=== PATIENT | male | born 1985 | race Caucasian/White ===

== ENCOUNTER 2020-01-12 19:23 | Inpatient (IN) | payer MEDICAID ==
--- NOTE | 2020-01-12 19:45 | EDM.PDOC ---
ED HPI GENERAL MEDICAL PROBLEM - General Chief Complaint: Drug or Alcohol Abuse Stated Complaint: DETOXING FROM ALCOHOL AND VOMITING Time Seen by Provider: 01/12/20 19:44 - History of Present Illness INITIAL COMMENTS - FREE TEXT/NARRATIVE: 34-year-old male presents the emergency room with alcohol detox. According to the patient and his significant other the patient has had 4 seizures today these have been followed by brief episodes of decreased level of consciousness and been quite sleepy. The patient has has a history of chronic alcoholism and when he has tried to dry out in the past he has had rough times with withdrawal. Including seizures. His last drink was this morning he had half a beer normal he drinks about a 12 pack a day. When asked if he "wants to quit drinking he answers no however he really wants to slow down. He has been having significant nausea and vomiting and he has been coughing. Denies fevers or chills. Denies pain elsewhere. - Related Data Allergies Allergy/AdvReac Type Severity Reaction Status Date / Time No Known Allergies Allergy Verified 01/12/20 19:34 Past Medical History - Past Health History Medical/Surgical History: Denies Medical/Surgical History Psychiatric History: Reports: Addiction Social & Family History - Family History Family Medical History: Noncontributory - Tobacco Use Smoking Status *Q: Current Every Day Smoker Years of Tobacco use: 16 Packs/Tins Daily: 1 - Alcohol Use Days Per Week of Alcohol Use: 7 Number of Drinks Per Day: 12 Total Drinks Per Week: 84 Date of Last Drink: 01/11/20 - Recreational Drug Use Recreational Drug Use: No ED ROS GENERAL - Review of Systems Review Of Systems: See Below Constitutional: Denies: Fever, Chills HEENT: Reports: No Symptoms Respiratory: Reports: Cough. Denies: No Symptoms, Shortness of Breath, Wheezing, Pleuritic Chest Pain, Sputum Cardiovascular: Denies: Chest Pain, Dyspnea on Exertion, Palpitations Endocrine: Reports: No Symptoms GI/Abdominal: Reports: No Symptoms : Reports: No Symptoms Musculoskeletal: Reports: No Symptoms Skin: Reports: No Symptoms Neurological: Reports: Headache, Seizure, Tremors Psychiatric: Reports: Agitation, Anxiety. Denies: Mood Lability, Suicidal Ideation Hematologic/Lymphatic: Reports: No Symptoms Immunologic: Reports: No Symptoms ED EXAM, GENERAL - Physical Exam Exam: See Below Exam Limited By: No Limitations General Appearance: Alert, No Apparent Distress Eye Exam: Bilateral Eye: Normal Inspection Ears: Normal External Exam, Normal Canal, Hearing Grossly Normal, Normal TMs Nose: Normal Inspection, Normal Mucosa, No Blood Throat/Mouth: Normal Inspection, Normal Lips, Normal Gums, No Airway Compromise, Other (Dry mucosa) Head: Atraumatic, Normocephalic Neck: Normal Inspection, Supple, Non-Tender, Full Range of Motion Respiratory/Chest: No Respiratory Distress, Lungs Clear, Normal Breath Sounds, No Accessory Muscle Use, Chest Non-Tender Cardiovascular: Normal Peripheral Pulses, Regular Rate, Rhythm, No Edema, No Gallop, No JVD, No Murmur, No Rub GI/Abdominal: Normal Bowel Sounds, Soft, Tender (Use mild discomfort no localizing symptoms). No: Guarding, Rigid, Rebound Back Exam: Normal Inspection. No: CVA Tenderness (L), CVA Tenderness (R) Extremities: Normal Inspection, Normal Range of Motion, Non-Tender Psychiatric: Anxious Course - Vital Signs Last Recorded V/S: Last Vital Signs Temp 36.2 C 01/12/20 19:35 Pulse 118 H 01/12/20 19:35 Resp 16 01/12/20 19:35 BP 154/98 H 01/12/20 19:35 Pulse Ox 96 01/12/20 19:35 - Orders/Labs/Meds Orders: Active Orders 24 hr Category Date Time Status Chest 1V Frontal [CR] Stat Exams 01/12/20 19:54 Taken DRUG SCREEN, URINE [URCHEM] Stat Lab 01/12/20 19:54 Ordered UA RFX BRIANNA AND CULT IF INDIC [URIN] Stat Lab 01/12/20 19:54 Ordered LORazepam [Ativan] Med 01/12/20 20:54 Active See Protocol IVPUSH Q4H PRN Lactated Ringers [Ringers, Lactated] 1,000 ml Med 01/12/20 21:07 Active IV .BOLUS Magnesium Sulfate/Water [Magnesium Sulfate in Water Med 01/12/20 20:21 Active Premix] 2 gm Premix Bag 1 bag IV ONETIME Medication Orders Magnesium Sulfate 2 gm/ Premix 50 mls @ 25 mls/hr IV ONETIME ONE Stop: 01/12/20 22:20 Last Admin: 01/12/20 20:39 Dose: 25 mls/hr Documented by: VALERY Lactated Ringer's (Ringers, Lactated) 1,000 mls @ 999 mls/hr IV .BOLUS ONE Stop: 01/12/20 22:07 Last Admin: 01/12/20 21:12 Dose: 999 mls/hr Documented by: VALERY Lorazepam (Ativan) 0 mg IVPUSH Q4H PRN; Protocol PRN Reason: Withdrawal Symptoms Last Admin: 01/12/20 21:12 Dose: 2 mg Documented by: VALERY Labs: Laboratory Tests 01/12/20 01/12/20 01/12/20 Range/Units 19:40 19:40 19:40 WBC 7.49 (4.23-9.07) K/mm3 RBC 5.11 (4.63-6.08) M/mm3 Hgb 16.0 (13.7-17.5) gm/dl Hct 48.5 (40.1-51.0) % MCV 94.9 H (79.0-92.2) fl MCH 31.3 (25.7-32.2) pg MCHC 33.0 (32.2-35.5) g/dl RDW Std Deviation 45.4 H (35.1-43.9) fL Plt Count 128 L (163-337) K/mm3 MPV 9.7 (9.4-12.3) fl Neut % (Auto) 58.2 (34.0-67.9) % Lymph % (Auto) 19.4 L (21.8-53.1) % [place] % (Auto) 21.5 H (5.3-12.2) % Eos % (Auto) 0.1 L (0.8-7.0) Baso % (Auto) 0.7 (0.1-1.2) % Neut # (Auto) 4.36 (1.78-5.38) K/mm3 Lymph # (Auto) 1.45 (1.32-3.57) K/mm3 [place] # (Auto) 1.61 H (0.30-0.82) K/mm3 Eos # (Auto) 0.01 L (0.04-0.54) K/mm3 Baso # (Auto) 0.05 (0.01-0.08) K/mm3 Manual Slide Review Normal smear PT 10.8 (9.7-12.0) SECONDS INR 1.01 Sodium 137 (136-145) mEq/L Potassium 3.3 L (3.5-5.1) mEq/L Chloride 98 (98-107) mEq/L Carbon Dioxide 18 L (21-32) mEq/L Anion Gap 24.3 H (5-15) BUN 6 L (7-18) mg/dL Creatinine 1.5 H (0.7-1.3) mg/dL Est Cr Clr Drug Dosing 71.23 mL/min Estimated GFR (MDRD) 54 (>60) mL/min BUN/Creatinine Ratio 4.0 L (14-18) Glucose 185 H (74-106) mg/dL Calcium 9.9 (8.5-10.1) mg/dL Magnesium 1.6 L (1.8-2.4) mg/dl Total Bilirubin 0.4 (0.2-1.0) mg/dL GGT 321 H (15-85) U/L AST 79 H (15-37) U/L ALT 59 (16-63) U/L Alkaline Phosphatase 106 (46-116) U/L Total Protein 9.0 H (6.4-8.2) g/dl Albumin 4.5 (3.4-5.0) g/dl Globulin 4.5 gm/dL Albumin/Globulin Ratio 1.0 (1-2) Ethyl Alcohol 0.00 (0.00) gm% Meds: Medications Generic Name Dose Route Start Last Admin Trade Name Malcolmq PRN Reason Stop Dose Admin Magnesium Sulfate 2 gm/ Premix 50 mls @ 25 mls/hr 01/12/20 20:21 01/12/20 20:39 IV 01/12/20 22:20 25 mls/hr ONETIME ONE Administration Lactated Ringer's 1,000 mls @ 999 mls/hr 01/12/20 21:07 01/12/20 21:12 Ringers, Lactated IV 01/12/20 22:07 999 mls/hr .BOLUS ONE Administration Lorazepam 0 mg 01/12/20 20:54 01/12/20 21:12 Ativan IVPUSH 2 mg Q4H PRN Administration Withdrawal Symptoms Protocol Discontinued Medications Generic Name Dose Route Start Last Admin Trade Name Freq PRN Reason Stop Dose Admin Lactated Ringer's 1,000 mls @ 999 mls/hr 01/12/20 19:46 01/12/20 20:00 Ringers, Lactated IV 01/12/20 20:46 999 mls/hr .BOLUS ONE Administration Thiamine HCl 100 mg/ Sodium 101 mls @ 202 mls/hr 01/12/20 20:22 01/12/20 20:40 Chloride IV 01/12/20 20:23 202 mls/hr ONETIME ONE Administration Lorazepam 2 mg 01/12/20 19:46 01/12/20 20:00 Ativan IVPUSH 01/12/20 19:47 2 mg ONETIME ONE Administration Lorazepam 1 mg 01/12/20 20:45 Ativan IVPUSH Q4H PRN Withdrawal Symptoms Protocol Ondansetron HCl 4 mg 01/12/20 19:46 01/12/20 20:00 Zofran IVPUSH 01/12/20 19:47 4 mg ONETIME ONE Administration - Re-Assessments/Exams Free Text/Narrative Re-Assessment/Exam: 01/12/20 21:25 Patient is doing better he said a total of 4 mg of Ativan to get his tremors under control and he is somewhat restful at this point. The patient is not eager to be put in the hospital he is leaning more towards discharge. I had a discussion with him and strongly recommend he consider staying in the hospital this can be a life-threatening problem. He will discuss it with his girlfriend and then we will talk soon. 01/12/20 21:48 Discussed the situation again with the patient and his girlfriend he understands that this is a life-threatening condition and overall he can just decrease his alcohol intake he must quit and he does understand this. He is willing to stay in the hospital and willing to pursue alcohol rehab treatment after leaving the hospital. Case discussed with Dr. Kahn, our hospitalist who is kind enough to admit the patient the patient will go to the ICU Dr. Kahn recommends giving the patient 50 mg of p.o. Librium now. Departure - Departure Time of Disposition: 21:43 Disposition: Admitted As Inpatient 66 Clinical Impression: Alcohol withdrawal syndrome - Discharge Information Referrals: PCP,None [Primary Care Provider] - Sepsis Event Note (ED) - Evaluation Sepsis Screening Result: No Definite Risk - Focused Exam Vital Signs: Vital Signs Temp Pulse Resp BP Pulse Ox 01/12/20 19:35 36.2 C 118 H 16 154/98 H 96 - My Orders Last 24 Hours: My Active Orders 01/12/20 19:54 Chest 1V Frontal [CR] Stat DRUG SCREEN, URINE [URCHEM] Stat UA RFX BRIANNA AND CULT IF INDIC [URIN] Stat 01/12/20 20:21 Magnesium Sulfate/Water [Magnesium Sulfate in Water Premix] 2 gm Premix Bag 1 bag IV ONETIME 01/12/20 20:54 LORazepam [Ativan] See Protocol IVPUSH Q4H PRN 01/12/20 21:07 Lactated Ringers [Ringers, Lactated] 1,000 ml IV .BOLUS - Assessment/Plan Last 24 Hours: My Active Orders 01/12/20 19:54 Chest 1V Frontal [CR] Stat DRUG SCREEN, URINE [URCHEM] Stat UA RFX BRIANNA AND CULT IF INDIC [URIN] Stat 01/12/20 20:21 Magnesium Sulfate/Water [Magnesium Sulfate in Water Premix] 2 gm Premix Bag 1 bag IV ONETIME 01/12/20 20:54 LORazepam [Ativan] See Protocol IVPUSH Q4H PRN 01/12/20 21:07 Lactated Ringers [Ringers, Lactated] 1,000 ml IV .BOLUS
[2020-01-12] MEDS ORDERED: Ondansetron 4 MG/2 ML SDV IVPUSH ONE (19:46)
[2020-01-12] MEDS ORDERED: LORazepam 2 MG/ML SDV IVPUSH ONE (19:46)
[2020-01-12] MEDS ORDERED: Lactated Ringers 1,000 ML IV ONE ×2 (19:46→21:07)
[2020-01-12] MEDS ORDERED: Magnesium Sulfate/Water 2 GM in Premix Bag 1 BAG IV ONE (20:21)
[2020-01-12] MEDS ORDERED: Thiamine 100 MG in Sodium Chloride 0.9% 100 ML IV ONE (20:22)
[2020-01-12] MEDS ORDERED: LORazepam 2 MG/ML SDV IVPUSH PRN ×2 (20:45→20:54)
[2020-01-12] MEDS ORDERED: chlordiazePOXIDE 25 MG Cap PO ONE (21:43)
[2020-01-12] MEDS: Dextrose 5%-0.45% NaCl 1,000 ML IV SCH (22:36)
[2020-01-12] MEDS ORDERED: Ondansetron 4 MG/2 ML SDV IV PRN (22:44)
[2020-01-12] MEDS ORDERED: Acetaminophen 325 MG Tab PO PRN (22:44)
--- NOTE | 2020-01-12 22:55 | PCM.HP.2 ---
H&P History of Present Illness - General Date of Service: 01/12/20 Admit Problem/Dx: Admission Diagnosis/Problem Admission Diagnosis/Problem Alcohol withdrawal syndrome - History of Present Illness Initial Comments - Free Text/Narative: 34-year-old [place] in by his girlfriend after vomiting up blood. Patient in a couple states that he drinks approximately 6, 24 ounce malt liquor beers every day and at least once a month his stomach will be upset and he will stop drinking. When he decreases his drinking he usually does vomit and has seizure-like episodes. Today patient had 4 seizures the last 1 approximately 5 minutes before arriving at the emergency department. Patient has actually cut down his drinking from a few months ago. He was drinking approximately 1/2 gallon of whiskey or vodka a day. Patient is requesting hospitalization for alcohol detox, but does not want to start alcohol rehab in this area. He plans on continuing through to visit his girlfriend's family in [place]. In the emergency department patient received a total of 4 mg of Ativan and 50 mg of Librium. Patient has significant improvement in his CIWAA scores. On arrival to the ER he did have a temperature just over 100. White count on admission was 7.49, hemoglobin 16.0, platelet count 128. Potassium 3.3, anion gap of 24.3, bicarb 18, creatinine 1.5, BUN 6, estimated GFR 54, GGT 321, AST 79, ALT 59, magnesium 1.6, total bilirubin 0.4, INR 1.01, ethanol 0. Chest x- ray showed no acute findings. Patient is a 1-1/2 pack/day smoker for the last 18 years. Throat Pain Score (Numeric/FACES): 3 - Related Data Allergies/Adverse Reactions: Allergies Allergy/AdvReac Type Severity Reaction Status Date / Time No Known Allergies Allergy Verified 01/13/20 00:38 Home Medications: Home Meds . [No Known Home Meds] 01/13/20 [History] Past Medical History - Past Health History Medical/Surgical History: Denies Medical/Surgical History Psychiatric History: Reports: Addiction Social & Family History - Family History Family Medical History: Noncontributory - Tobacco Use Smoking Status *Q: Current Every Day Smoker Years of Tobacco use: 16 Packs/Tins Daily: 1 - Alcohol Use Days Per Week of Alcohol Use: 7 Number of Drinks Per Day: 12 Total Drinks Per Week: 84 Date of Last Drink: 01/11/20 - Recreational Drug Use Recreational Drug Use: No H&P Review of Systems - Review of Systems: Review Of Systems: Comprehensive ROS is negative, except as noted in HPI. Exam - Exam Exam: See Below - Vital Signs Vital Signs: Last Vital Signs Temp 97.1 F 01/12/20 19:35 Pulse 118 H 01/12/20 19:35 Resp 16 01/12/20 19:35 BP 154/98 H 01/12/20 19:35 Pulse Ox 96 01/12/20 19:35 Weight: 72.575 kg - Exam General: Oriented, Sedated HEENT: Conjunctiva Clear, Mucosa Moist & [place], Normal Nasal Septum, Posterior Pharynx Clear Neck: Supple, Trachea Midline, 2 Lungs: Clear to Auscultation, Normal Respiratory Effort Cardiovascular: Regular Rate, Regular Rhythm GI/Abdominal Exam: Normal Bowel Sounds, Soft, Non-Tender, No Organomegaly, No Distention, No Abnormal Bruit, No Mass Back Exam: Normal Inspection, Full Range of Motion, NT Extremities: Normal Inspection, Normal Range of Motion, Non-Tender, No Pedal Edema, Normal Capillary Refill Skin: Warm, Dry, Intact Neurological: Cranial Nerves Intact Neuro Extensive - Mental Status: Alert, Oriented x3, Normal Mood/Affect, Normal Cognition, Memory Intact Psychiatric: Alert, Normal Affect, Normal Mood - Patient Data Lab Results Last 24 hrs: Laboratory Results - last 24 hr 01/12/20 01/12/20 01/12/20 Range/Units 19:40 19:40 19:40 WBC 7.49 (4.23-9.07) K/mm3 RBC 5.11 (4.63-6.08) M/mm3 Hgb 16.0 (13.7-17.5) gm/dl Hct 48.5 (40.1-51.0) % MCV 94.9 H (79.0-92.2) fl MCH 31.3 (25.7-32.2) pg MCHC 33.0 (32.2-35.5) g/dl RDW Std Deviation 45.4 H (35.1-43.9) fL Plt Count 128 L (163-337) K/mm3 MPV 9.7 (9.4-12.3) fl Neut % (Auto) 58.2 (34.0-67.9) % Lymph % (Auto) 19.4 L (21.8-53.1) % [place] % (Auto) 21.5 H (5.3-12.2) % Eos % (Auto) 0.1 L (0.8-7.0) Baso % (Auto) 0.7 (0.1-1.2) % Neut # (Auto) 4.36 (1.78-5.38) K/mm3 Lymph # (Auto) 1.45 (1.32-3.57) K/mm3 [place] # (Auto) 1.61 H (0.30-0.82) K/mm3 Eos # (Auto) 0.01 L (0.04-0.54) K/mm3 Baso # (Auto) 0.05 (0.01-0.08) K/mm3 Manual Slide Review Normal smear PT 10.8 (9.7-12.0) SECONDS INR 1.01 Sodium 137 (136-145) mEq/L Potassium 3.3 L (3.5-5.1) mEq/L Chloride 98 (98-107) mEq/L Carbon Dioxide 18 L (21-32) mEq/L Anion Gap 24.3 H (5-15) BUN 6 L (7-18) mg/dL Creatinine 1.5 H (0.7-1.3) mg/dL Est Cr Clr Drug Dosing 71.23 mL/min Estimated GFR (MDRD) 54 (>60) mL/min BUN/Creatinine Ratio 4.0 L (14-18) Glucose 185 H (74-106) mg/dL Calcium 9.9 (8.5-10.1) mg/dL Magnesium 1.6 L (1.8-2.4) mg/dl Total Bilirubin 0.4 (0.2-1.0) mg/dL GGT 321 H (15-85) U/L AST 79 H (15-37) U/L ALT 59 (16-63) U/L Alkaline Phosphatase 106 (46-116) U/L Total Protein 9.0 H (6.4-8.2) g/dl Albumin 4.5 (3.4-5.0) g/dl Globulin 4.5 gm/dL Albumin/Globulin Ratio 1.0 (1-2) Ethyl Alcohol 0.00 (0.00) gm% COVID-19 (HERBER) (NEGATIVE) 01/12/20 Range/Units 22:00 WBC (4.23-9.07) K/mm3 RBC (4.63-6.08) M/mm3 Hgb (13.7-17.5) gm/dl Hct (40.1-51.0) % MCV (79.0-92.2) fl MCH (25.7-32.2) pg MCHC (32.2-35.5) g/dl RDW Std Deviation (35.1-43.9) fL Plt Count (163-337) K/mm3 MPV (9.4-12.3) fl Neut % (Auto) (34.0-67.9) % Lymph % (Auto) (21.8-53.1) % [place] % (Auto) (5.3-12.2) % Eos % (Auto) (0.8-7.0) Baso % (Auto) (0.1-1.2) % Neut # (Auto) (1.78-5.38) K/mm3 Lymph # (Auto) (1.32-3.57) K/mm3 [place] # (Auto) (0.30-0.82) K/mm3 Eos # (Auto) (0.04-0.54) K/mm3 Baso # (Auto) (0.01-0.08) K/mm3 Manual Slide Review PT (9.7-12.0) SECONDS INR Sodium (136-145) mEq/L Potassium (3.5-5.1) mEq/L Chloride (98-107) mEq/L Carbon Dioxide (21-32) mEq/L Anion Gap (5-15) BUN (7-18) mg/dL Creatinine (0.7-1.3) mg/dL Est Cr Clr Drug Dosing mL/min Estimated GFR (MDRD) (>60) mL/min BUN/Creatinine Ratio (14-18) Glucose (74-106) mg/dL Calcium (8.5-10.1) mg/dL Magnesium (1.8-2.4) mg/dl Total Bilirubin (0.2-1.0) mg/dL GGT (15-85) U/L AST (15-37) U/L ALT (16-63) U/L Alkaline Phosphatase (46-116) U/L Total Protein (6.4-8.2) g/dl Albumin (3.4-5.0) g/dl Globulin gm/dL Albumin/Globulin Ratio (1-2) Ethyl Alcohol (0.00) gm% COVID-19 (HER[facility]) Negative (NEGATIVE) Result Diagrams: 01/13/20 04:50 01/13/20 04:50 Sepsis Event Note - Evaluation Sepsis Screening Result: No Definite Risk - Focused Exam Vital Signs: Vital Signs Temp Pulse Resp BP Pulse Ox 01/12/20 19:35 97.1 F 118 H 16 154/98 H 96 Date Exam was Performed: 01/12/20 Time Exam was Performed: 22:55 Problem List Initiated/Reviewed/Updated: Yes Orders Last 24hrs: Active Orders 24 hr Category Date Time Status Patient Status [ADT] Routine ADT 01/12/20 22:29 Active Antiembolic Devices [RC] PER UNIT ROUTINE Care 01/12/20 22:47 Ordered CIWAA Assessment [RC] ASDIRECTED Care 01/12/20 22:53 Ordered Oxygen Therapy [RC] PRN Care 01/12/20 22:44 Ordered Up With Assistance [RC] ASDIRECTED Care 01/12/20 22:44 Ordered VTE/DVT Education [RC] PER UNIT ROUTINE Care 01/12/20 22:44 Ordered Vital Signs [RC] ASDIRECTED Care 01/12/20 22:44 Ordered Consult to Case Management/Industrial Engineering Technician [CONS] Cons 01/13/20 08:00 Ordered Routine Consult to Spiritual Care [CONS] Routine Cons 01/13/20 08:00 Ordered Clear Liquid Diet [DIET] Diet 01/13/20 Breakfast Ordered Chest 1V Frontal [CR] Stat Exams 01/12/20 19:54 Taken CBC WITH AUTO DIFF [HEME] AM Lab 01/13/20 05:11 Ordered CBC WITH AUTO DIFF [HEME] AM Lab 01/14/20 05:11 Ordered CBC WITH AUTO DIFF [HEME] AM Lab 01/15/20 05:11 Ordered COMPREHENSIVE METABOLIC PN,CMP [CHEM] AM Lab 01/13/20 05:11 Ordered COMPREHENSIVE METABOLIC PN,CMP [CHEM] AM Lab 01/14/20 05:11 Ordered COMPREHENSIVE METABOLIC PN,CMP [CHEM] AM Lab 01/15/20 05:11 Ordered DRUG SCREEN, URINE [URCHEM] Stat Lab 01/12/20 19:54 Ordered MAGNESIUM [CHEM] AM Lab 01/13/20 05:11 Ordered MAGNESIUM [CHEM] AM Lab 01/14/20 05:11 Ordered MAGNESIUM [CHEM] AM Lab 01/15/20 05:11 Ordered UA RFX BRIANNA AND CULT IF INDIC [URIN] Stat Lab 01/12/20 19:54 Ordered Acetaminophen [Tylenol] Med 01/12/20 22:44 Ordered 650 mg PO Q4H PRN Dextrose 5%-0.45% NaCl [Dextrose 5%-1/2 NS] 1,000 ml Med 01/12/20 22:45 Active IV ASDIRECTED Folic Acid Med 01/13/20 09:00 Ordered 1 mg PO DAILY LORazepam [Ativan] Med 01/12/20 20:54 Active See Protocol IVPUSH Q4H PRN Ondansetron [Zofran] Med 01/12/20 22:44 Ordered 4 mg IV Q4H PRN Pantoprazole [ProTONIX IV] Med 01/12/20 23:00 Ordered 40 mg IVPUSH Q12H Potassium Chloride [KCl 10 MEQ in Water 100 ML] 10 meq Med 01/12/20 23:00 Ordered Premix Bag 1 bag IV Q1H Thiamine [Vitamin B-1] Med 01/13/20 09:00 Ordered 100 mg IVPUSH DAILY chlordiazePOXIDE [Librium] Med 01/13/20 02:00 Ordered See Protocol PO Q1H PRN Sequential Compression Device [OM.PC] Per Unit Routine Oth 01/12/20 22:45 Ordered Resuscitation Status Routine Resus Stat 01/12/20 22:44 Ordered Medication Orders Acetaminophen (Tylenol) 650 mg PO Q4H PRN PRN Reason: Pain (Mild 1-3)/fever Chlordiazepoxide HCl (Librium) 0 mg PO Q1H PRN; Protocol PRN Reason: Withdrawal Symptoms Folic Acid (Folic Acid) 1 mg PO DAILY JOAQUÍN Dextrose/Sodium Chloride (Dextrose 5%-1/2 Ns) 1,000 mls @ 150 mls/hr IV ASDI RECTED JOAQUÍN Last Admin: 01/12/20 22:36 Dose: 150 mls/hr Documented by: KAUFTALilian Potassium Chloride 10 meq/ (Premix) 100 mls @ 100 mls/hr IV Q1H [facility] Stop: 01/13/20 02:59 Lorazepam (Ativan) 0 mg IVPUSH Q4H PRN; Protocol PRN Reason: Withdrawal Symptoms Last Admin: 01/12/20 21:12 Dose: 2 mg Documented by: VALERY Ondansetron HCl (Zofran) 4 mg IV Q4H PRN PRN Reason: Nausea/Vomiting Pantoprazole Sodium (Protonix Iv) 40 mg IVPUSH Q12H [facility] Thiamine HCl (Vitamin B-1) 100 mg IVPUSH DAILY [facility] Assessment/Plan Comment:: Assessment * Alcohol withdrawal syndrome with alcohol withdrawal seizures * Patient reportedly had 4 seizures today, but none witnessed in the em ergency department * History of alcohol abuse but has not been through alcohol rehab in the past. * Currently not interested in alcohol rehabilitation. * Received 4 mg of Ativan and 50 mg Librium in the emergency department with good results and lowering of CIWA score below 8 * Received thiamine 100 mg IV in the emergency department * Received two 1 L boluses of IV fluids * Thrombocytopenia * Likely secondary to alcoholism * Platelets 128,000 * No history of bruising or bleeding * Nausea and vomiting with episodes of hematemesis * Secondary to alcohol withdrawal * Hemoglobin 16.0 likely artificially elevated secondary to hypovolemia * Hypokalemia * Secondary to vomiting and poor oral intake * Potassium 3.3 * Elevated blood pressure without history of hypertension * Secondary to alcohol withdrawal * Low-grade fever * Continue to follow and if fever becomes greater than 101 will work-up for sepsis * Chest x-ray negative for infection. * Normal white count * Still possibility of aspiration pneumonia * Tobaccoism * 1/2 packs/day for last 18 years * Request nicotine patch Plan * Admit to ICU for close observation * Start Librium protocol * Piero protocol with Ativan protocol coverage * Continue thiamine 100 mg IV tomorrow morning and switch to oral, if able to take orally, tomorrow night * Folic acid 1 mg daily * Protonix 40 mg IV every 12 hours * Clear liquid diet * D5 half-normal saline at 150 mL/h for volume resuscitation * Follow CBC, CMP, mag * Potassium chloride 10 mill equivalent IV riders x4 * Follow blood pressure closely and temperature * If fever is greater than 101, and patient has no other significant signs of withdrawal, will panculture and start antibiotics. * Nicotine patch * CODE STATUS full code * VTE prophylaxis with SCDs * Anticipated length of stay 2 to 3 days - Mortality Measure Prognosis:: Good
[2020-01-12] MEDS: Pantoprazole 40 MG Vial IVPUSH SCH (23:42)
[2020-01-12] MEDS: Potassium Chloride 10 MEQ in Premix Bag 1 BAG IV SCH (23:42)
[2020-01-13] MEDS: LORazepam 2 MG/ML SDV IVPUSH PRN (00:17)
[2020-01-13] MEDS: Potassium Chloride 10 MEQ in Premix Bag 1 BAG IV SCH ×3 (00:48→02:50)
[2020-01-13] MEDS ORDERED: chlordiazePOXIDE 25 MG Cap PO PRN (02:00)
[2020-01-13] MEDS: chlordiazePOXIDE 25 MG Cap PO SCH ×6 (02:37→23:33)
[2020-01-13] MEDS: Dextrose 5%-0.45% NaCl 1,000 ML IV SCH ×2 (05:29→11:58)
[2020-01-13] MEDS: Nicotine 21 MG/24 Hr Patch TRDERM SCH ×2 (07:43→08:21)
[2020-01-13] MEDS: Thiamine 200 MG/2 ML MDV IVPUSH SCH ×2 (07:44→08:21)
[2020-01-13] MEDS: Folic Acid 1 MG Tab PO SCH ×2 (07:44→08:21)
[2020-01-13] MEDS: Pantoprazole 40 MG Vial IVPUSH SCH ×2 (07:44→08:21)
[2020-01-13] MEDS: Benzocaine 20% Oral Spray 59.2 ML Canister MUCMEM PRN ×3 (08:26→17:09)
--- NOTE | 2020-01-13 08:50 | CR ---
Chest: Portable view of the chest was obtained. Comparison: No prior chest x-rays available. Heart size and mediastinum are normal. Lungs are clear and no acute parenchymal change. Bony structures are grossly intact. Impression: 1. Nothing acute is seen on portable chest x-ray. Diagnostic code #1 Study was dictated in MDT
--- NOTE | 2020-01-13 13:25 | PCM.PN ---
- General Info Date of Service: 01/13/20 Admission Dx/Problem (Free Text): Admission Diagnosis/Problem Admission Diagnosis/Problem Alcohol withdrawal syndrome Subjective Update: Patient had uneventful night. Received 1 mg of Ativan at midnight otherwise did not require any more breakthrough benzodiazepines. His appetite is good, he has not vomited anymore, he has not had any seizures, and he is tolerating a clear liquid diet. Functional Status: Reports: Pain Controlled - Review of Systems General: Reports: No Symptoms HEENT: Reports: No Symptoms Pulmonary: Reports: No Symptoms Cardiovascular: Reports: No Symptoms Gastrointestinal: Reports: No Symptoms Musculoskeletal: Reports: No Symptoms Skin: Reports: No Symptoms Neurological: Reports: No Symptoms Psychiatric: Reports: No Symptoms - Patient Data Vitals - Most Recent: Last Vital Signs Temp 97.3 F 01/13/20 12:00 Pulse 78 01/13/20 12:00 Resp 16 01/13/20 12:00 BP 121/82 01/13/20 12:00 Pulse Ox 98 01/13/20 12:00 Weight - Most Recent: 72.575 kg I&O - Last 24 Hours: Intake & Output 01/12/20 01/13/20 01/13/20 22:59 06:59 14:59 Intake Total 1390 Output Total 1550 Balance -160 Lab Results Last 24 Hours: Laboratory Results - last 24 hr 01/12/20 01/12/20 01/12/20 Range/Units 19:40 19:40 19:40 WBC 7.49 (4.23-9.07) K/mm3 RBC 5.11 (4.63-6.08) M/mm3 Hgb 16.0 (13.7-17.5) gm/dl Hct 48.5 (40.1-51.0) % MCV 94.9 H (79.0-92.2) fl MCH 31.3 (25.7-32.2) pg MCHC 33.0 (32.2-35.5) g/dl RDW Std Deviation 45.4 H (35.1-43.9) fL Plt Count 128 L (163-337) K/mm3 MPV 9.7 (9.4-12.3) fl Neut % (Auto) 58.2 (34.0-67.9) % Lymph % (Auto) 19.4 L (21.8-53.1) % [place] % (Auto) 21.5 H (5.3-12.2) % Eos % (Auto) 0.1 L (0.8-7.0) Baso % (Auto) 0.7 (0.1-1.2) % Neut # (Auto) 4.36 (1.78-5.38) K/mm3 Lymph # (Auto) 1.45 (1.32-3.57) K/mm3 [place] # (Auto) 1.61 H (0.30-0.82) K/mm3 Eos # (Auto) 0.01 L (0.04-0.54) K/mm3 Baso # (Auto) 0.05 (0.01-0.08) K/mm3 Manual Slide Review Normal smear PT 10.8 (9.7-12.0) SECONDS INR 1.01 Sodium 137 (136-145) mEq/L Potassium 3.3 L (3.5-5.1) mEq/L Chloride 98 (98-107) mEq/L Carbon Dioxide 18 L (21-32) mEq/L Anion Gap 24.3 H (5-15) BUN 6 L (7-18) mg/dL Creatinine 1.5 H (0.7-1.3) mg/dL Est Cr Clr Drug Dosing 71.23 mL/min Estimated GFR (MDRD) 54 (>60) mL/min BUN/Creatinine Ratio 4.0 L (14-18) Glucose 185 H (74-106) mg/dL Calcium 9.9 (8.5-10.1) mg/dL Magnesium 1.6 L (1.8-2.4) mg/dl Total Bilirubin 0.4 (0.2-1.0) mg/dL GGT 321 H (15-85) U/L AST 79 H (15-37) U/L ALT 59 (16-63) U/L Alkaline Phosphatase 106 (46-116) U/L Total Protein 9.0 H (6.4-8.2) g/dl Albumin 4.5 (3.4-5.0) g/dl Globulin 4.5 gm/dL Albumin/Globulin Ratio 1.0 (1-2) Urine Color (Yellow) Urine Appearance (Clear) Urine pH (5.0-8.0) Ur Specific [place] (1.005-1.030) Urine Protein (Negative) Urine Glucose (UA) (Negative) Urine Ketones (Negative) Urine Occult Blood (Negative) Urine Nitrite (Negative) Urine Bilirubin (Negative) Urine Urobilinogen (0.2-1.0) Ur Leukocyte Esterase (Negative) U Hyaline Cast (Auto) (0-5) /lpf Urine RBC (0-5) /hpf Urine WBC (0-5) /hpf Ur Epithelial Cells (0-5) /hpf Amorphous Sediment (NOT SEEN) /hpf Urine Bacteria (FEW) /hpf Urine Mucus (FEW) /hpf Urine Opiates Screen (PEBCAW=143) Ur Buprenorphine Scrn (CUTOFF=10) Ur Oxycodone Screen (IOR4RA=999) Urine Methadone Screen (VBW2DB=684) Ur Propoxyphene Screen (NIBYUX=201) Ur Barbiturates Screen (CFHNMW=327) Ur Tricyclics Screen (WDVSJY=090) Ur Phencyclidine Scrn (CUTOFF=25) Ur Amphetamine Screen (CPPNGI=737) U Methamphetamines Scrn (KKSLFL=119) U Benzodiazepines Scrn (FOEJCX=722) U Cocaine Metab Screen (ZUTBDC=687) U Marijuana (THC) Screen (CUTOFF=50) Ethyl Alcohol 0.00 (0.00) gm% COVID-19 (HERBER) (NEGATIVE) 01/12/20 01/12/20 01/12/20 Range/Units 22:00 23:00 23:00 WBC (4.23-9.07) K/mm3 RBC (4.63-6.08) M/mm3 Hgb (13.7-17.5) gm/dl Hct (40.1-51.0) % MCV (79.0-92.2) fl MCH (25.7-32.2) pg MCHC (32.2-35.5) g/dl RDW Std Deviation (35.1-43.9) fL Plt Count (163-337) K/mm3 MPV (9.4-12.3) fl Neut % (Auto) (34.0-67.9) % Lymph % (Auto) (21.8-53.1) % [place] % (Auto) (5.3-12.2) % Eos % (Auto) (0.8-7.0) Baso % (Auto) (0.1-1.2) % Neut # (Auto) (1.78-5.38) K/mm3 Lymph # (Auto) (1.32-3.57) K/mm3 [place] # (Auto) (0.30-0.82) K/mm3 Eos # (Auto) (0.04-0.54) K/mm3 Baso # (Auto) (0.01-0.08) K/mm3 Manual Slide Review PT (9.7-12.0) SECONDS INR Sodium (136-145) mEq/L Potassium (3.5-5.1) mEq/L Chloride (98-107) mEq/L Carbon Dioxide (21-32) mEq/L Anion Gap (5-15) BUN (7-18) mg/dL Creatinine (0.7-1.3) mg/dL Est Cr Clr Drug Dosing mL/min Estimated GFR (MDRD) (>60) mL/min BUN/Creatinine Ratio (14-18) Glucose (74-106) mg/dL Calcium (8.5-10.1) mg/dL Magnesium (1.8-2.4) mg/dl Total Bilirubin (0.2-1.0) mg/dL GGT (15-85) U/L AST (15-37) U/L ALT (16-63) U/L Alkaline Phosphatase (46-116) U/L Total Protein (6.4-8.2) g/dl Albumin (3.4-5.0) g/dl Globulin gm/dL Albumin/Globulin Ratio (1-2) Urine Color Yellow (Yellow) Urine Appearance Cloudy H (Clear) Urine pH 8.5 H (5.0-8.0) Ur Specific [place] 1.020 (1.005-1.030) Urine Protein Trace H (Negative) Urine Glucose (UA) Negative (Negative) Urine Ketones 1+ H (Negative) Urine Occult Blood Negative (Negative) Urine Nitrite Negative (Negative) Urine Bilirubin Negative (Negative) Urine Urobilinogen 0.2 (0.2-1.0) Ur Leukocyte Esterase Negative (Negative) U Hyaline Cast (Auto) 0-5 (0-5) /lpf Urine RBC Not seen (0-5) /hpf Urine WBC 0-5 (0-5) /hpf Ur Epithelial Cells Not seen (0-5) /hpf Amorphous Sediment Many H (NOT SEEN) /hpf Urine Bacteria Rare (FEW) /hpf Urine Mucus Not seen (FEW) /hpf Urine Opiates Screen Negative (RWTURH=394) Ur Buprenorphine Scrn Negative (CUTOFF=10) Ur Oxycodone Screen Negative (UUD0NP=148) Urine Methadone Screen Negative (VFO7CG=033) Ur Propoxyphene Screen Negative (QZKACN=691) Ur Barbiturates Screen Negative (AKEHDL=892) Ur Tricyclics Screen Negative (BHTEIY=862) Ur Phencyclidine Scrn Negative (CUTOFF=25) Ur Amphetamine Screen Negative (SKRHTW=905) U Methamphetamines Scrn Negative (DGRBKY=429) U Benzodiazepines Scrn Presumptive positive H (OFWSFW=352) U Cocaine Metab Screen Negative (FMMNOW=133) U Marijuana (THC) Screen Negative (CUTOFF=50) Ethyl Alcohol (0.00) gm% COVID-19 (HERBER) Negative (NEGATIVE) 01/13/20 01/13/20 Range/Units 04:50 04:50 WBC 6.32 (4.23-9.07) K/mm3 RBC 4.68 (4.63-6.08) M/mm3 Hgb 14.7 (13.7-17.5) gm/dl Hct 44.0 (40.1-51.0) % MCV 94.0 H (79.0-92.2) fl MCH 31.4 (25.7-32.2) pg MCHC 33.4 (32.2-35.5) g/dl RDW Std Deviation 44.0 H (35.1-43.9) fL Plt Count 110 L (163-337) K/mm3 MPV 10.4 (9.4-12.3) fl Neut % (Auto) 56.4 (34.0-67.9) % Lymph % (Auto) 22.0 (21.8-53.1) % [place] % (Auto) 20.9 H (5.3-12.2) % Eos % (Auto) 0 L (0.8-7.0) Baso % (Auto) 0.5 (0.1-1.2) % Neut # (Auto) 3.57 (1.78-5.38) K/mm3 Lymph # (Auto) 1.39 (1.32-3.57) K/mm3 [place] # (Auto) 1.32 H (0.30-0.82) K/mm3 Eos # (Auto) 0.00 L (0.04-0.54) K/mm3 Baso # (Auto) 0.03 (0.01-0.08) K/mm3 Manual Slide Review Abnormal smear PT (9.7-12.0) SECONDS INR Sodium 139 (136-145) mEq/L Potassium 3.4 L (3.5-5.1) mEq/L Chloride 102 (98-107) mEq/L Carbon Dioxide 26 (21-32) mEq/L Anion Gap 14.4 (5-15) BUN 5 L (7-18) mg/dL Creatinine 1.0 (0.7-1.3) mg/dL Est Cr Clr Drug Dosing 110.72 mL/min Estimated GFR (MDRD) > 60 (>60) mL/min BUN/Creatinine Ratio 5.0 L (14-18) Glucose 123 H (74-106) mg/dL Calcium 8.3 L D (8.5-10.1) mg/dL Magnesium 2.0 (1.8-2.4) mg/dl Total Bilirubin 0.3 (0.2-1.0) mg/dL GGT (15-85) U/L AST 57 H (15-37) U/L ALT 44 (16-63) U/L Alkaline Phosphatase 78 (46-116) U/L Total Protein 7.0 (6.4-8.2) g/dl Albumin 3.3 L (3.4-5.0) g/dl Globulin 3.7 gm/dL Albumin/Globulin Ratio 0.9 L (1-2) Urine Color (Yellow) Urine Appearance (Clear) Urine pH (5.0-8.0) Ur Specific [place] (1.005-1.030) Urine Protein (Negative) Urine Glucose (UA) (Negative) Urine Ketones (Negative) Urine Occult Blood (Negative) Urine Nitrite (Negative) Urine Bilirubin (Negative) Urine Urobilinogen (0.2-1.0) Ur Leukocyte Esterase (Negative) U Hyaline Cast (Auto) (0-5) /lpf Urine RBC (0-5) /hpf Urine WBC (0-5) /hpf Ur Epithelial Cells (0-5) /hpf Amorphous Sediment (NOT SEEN) /hpf Urine Bacteria (FEW) /hpf Urine Mucus (FEW) /hpf Urine Opiates Screen (XWOUJO=170) Ur Buprenorphine Scrn (CUTOFF=10) Ur Oxycodone Screen (WZC9EQ=280) Urine Methadone Screen (JLQ0OY=022) Ur Propoxyphene Screen (PBUNOH=922) Ur Barbiturates Screen (OVCKPI=204) Ur Tricyclics Screen (TLRHYY=313) Ur Phencyclidine Scrn (CUTOFF=25) Ur Amphetamine Screen (IYRLDA=420) U Methamphetamines Scrn (MOUSXV=663) U Benzodiazepines Scrn (ASVFAR=891) U Cocaine Metab Screen (UNSZLY=705) U Marijuana (THC) Screen (CUTOFF=50) Ethyl Alcohol (0.00) gm% COVID-19 (HERBER) (NEGATIVE) Med Orders - Current: Current Medications Acetaminophen (Tylenol) 650 mg PO Q4H PRN PRN Reason: Pain (Mild 1-3)/fever Last Admin: 01/12/20 23:42 Dose: 650 mg Documented by: Benzocaine (Hurricaine 20% [place]) 1 ml MUCMEM Q4HR PRN PRN Reason: Sore Throat Last Admin: 01/13/20 08:26 Dose: 1 spray Documented by: Chlordiazepoxide HCl (Librium) 50 mg PO Q4H [facility] Stop: 01/13/20 18:01 Last Admin: 01/13/20 09:12 Dose: 50 mg Documented by: Chlordiazepoxide HCl (Librium) 50 mg PO Q6H [facility] Stop: 01/14/20 18:01 Chlordiazepoxide HCl (Librium) 25 mg PO Q4H [facility] Stop: 01/15/20 18:01 Chlordiazepoxide HCl (Librium) 25 mg PO Q6H [facility] Stop: 01/16/20 18:01 Folic Acid (Folic Acid) 1 mg PO DAILY [facility] Last Admin: 01/13/20 08:21 Dose: Not Given Documented by: Dextrose/Sodium Chloride (Dextrose 5%-1/2 Ns) 1,000 mls @ 150 mls/hr IV A SDIRECTED [facility] Last Admin: 01/13/20 11:58 Dose: 150 mls/hr Documented by: Lorazepam (Ativan) 1 - 3 mg IVPUSH Q30M PRN; Protocol PRN Reason: Withdrawal Symptoms Last Admin: 01/13/20 00:17 Dose: 1 mg Documented by: Nicotine (Habitrol) 21 mg TRDERM DAILY [facility] Last Admin: 01/13/20 08:21 Dose: Not Given Documented by: Ondansetron HCl (Zofran) 4 mg IV Q4H PRN PRN Reason: Nausea/Vomiting Last Admin: 01/13/20 08:49 Dose: 4 mg Documented by: Pantoprazole Sodium (Protonix Iv) 40 mg IVPUSH Q12HR [facility] Last Admin: 01/13/20 08:21 Dose: Not Given Documented by: Thiamine HCl (Vitamin B-1) 100 mg PO BEDTIME [facility]N Discontinued Medications Chlordiazepoxide HCl (Librium) 50 mg PO ONETIME ONE Stop: 01/12/20 21:44 Last Admin: 01/12/20 22:36 Dose: 50 mg Documented by: Chlordiazepoxide HCl (Librium) 0 mg PO Q1H PRN; Protocol PRN Reason: Withdrawal Symptoms Lactated Ringer's (Ringers, Lactated) 1,000 mls @ 999 mls/hr IV .BOLUS ONE Stop: 01/12/20 20:46 Last Admin: 01/12/20 20:00 Dose: 999 mls/hr Documented by: Magnesium Sulfate 2 gm/ Premix 50 mls @ 25 mls/hr IV ONETIME ONE Stop: 01/12/20 22:20 Last Admin: 01/12/20 20:39 Dose: 25 mls/hr Documented by: Thiamine HCl 100 mg/ Sodium (Chloride) 101 mls @ 202 mls/hr IV ONETIME ONE Stop: 01/12/20 20:23 Last Admin: 01/12/20 20:40 Dose: 202 mls/hr Documented by: Lactated Ringer's (Ringers, Lactated) 1,000 mls @ 999 mls/hr IV .BOLUS ONE Stop: 01/12/20 22:07 Last Admin: 01/12/20 21:12 Dose: 999 mls/hr Documented by: Potassium Chloride 10 meq/ (Premix) 100 mls @ 100 mls/hr IV Q1H [facility] Stop: 01/13/20 02:59 Last Admin: 01/13/20 02:50 Dose: 100 mls/hr Documented by: Lorazepam (Ativan) 2 mg IVPUSH ONETIME ONE Stop: 01/12/20 19:47 Last Admin: 01/12/20 20:00 Dose: 2 mg Documented by: Lorazepam (Ativan) 1 mg IVPUSH Q4H PRN; Protocol PRN Reason: Withdrawal Symptoms Lorazepam (Ativan) 0 mg IVPUSH Q4H PRN; Protocol PRN Reason: Withdrawal Symptoms Last Admin: 01/12/20 21:12 Dose: 2 mg Documented by: Miscellaneous Information (Remove Patch) 1 ea TRDERM DAILY [facility] Ondansetron HCl (Zofran) 4 mg IVPUSH ONETIME ONE Stop: 01/12/20 19:47 Last Admin: 01/12/20 20:00 Dose: 4 mg Documented by: Thiamine HCl (Vitamin B-1) 100 mg IVPUSH DAILY [facility] Last Admin: 01/13/20 08:21 Dose: Not Given Documented by: - Exam General: Alert, Oriented HEENT: Pupils Equal, Mucous Membr. Moist/[place] Neck: Supple Lungs: Clear to Auscultation, Normal Respiratory Effort Cardiovascular: Regular Rate, Regular Rhythm GI/Abdominal Exam: Normal Bowel Sounds, Soft, Non-Tender, No Organomegaly, No Distention, No Abnormal Bruit, No Mass Extremities: Normal Inspection, Normal Range of Motion, Non-Tender, No Pedal Edema, Normal Capillary Refill Skin: Warm, Dry, Intact Psy/Mental Status: Alert, Normal Affect, Normal Mood, Withdrawal Symptoms Sepsis Event Note - Evaluation Sepsis Screening Result: No Definite Risk - Focused Exam Vital Signs: Vital Signs Temp Pulse Pulse Resp BP BP Pulse Ox 01/13/20 12:00 97.3 F 78 16 121/82 98 01/13/20 08:01 63 97 01/13/20 08:00 64 110/89 98 01/13/20 07:59 64 97 01/13/20 07:36 97.4 F 67 68 16 122/78 97 01/13/20 07:35 66 122/78 97 01/13/20 03:49 97.9 F 82 14 117/68 96 01/13/20 03:43 117/68 01/13/20 03:42 75 96 01/13/20 03:41 83 97 - Problem List Review Problem List Initiated/Reviewed/Updated: Yes - My Orders Last 24 Hours: My Active Orders 01/12/20 22:44 Oxygen Therapy [RC] PRN Up With Assistance [RC] ASDIRECTED VTE/DVT Education [RC] Vital Signs [RC] Q4HR Acetaminophen [Tylenol] 650 mg PO Q4H PRN Ondansetron [Zofran] 4 mg IV Q4H PRN Resuscitation Status Routine 01/12/20 22:45 Dextrose 5%-0.45% NaCl [Dextrose 5%-1/2 NS] 1,000 ml IV ASDIRECTED Sequential Compression Device [OM.PC] Per Unit Routine 01/12/20 22:47 Antiembolic Devices [RC] BID 01/12/20 22:53 CIWAA Assessment [RC] Q1HR 01/12/20 23:00 Pantoprazole [ProTONIX IV] 40 mg IVPUSH Q12HR 01/12/20 23:07 LORazepam [Ativan] 1 - 3 mg IVPUSH Q30M PRN 01/13/20 02:00 chlordiazePOXIDE [Librium] 50 mg PO Q4H 01/13/20 Breakfast Clear Liquid Diet [DIET] 01/13/20 07:54 Benzocaine [Hurricaine 20% [place]] 1 ml MUCMEM Q4HR PRN 01/13/20 08:00 Consult to Case Management/Tent Assembler [CONS] Routine Consult to Spiritual Care [CONS] Routine 01/13/20 09:00 Folic Acid 1 mg PO DAILY Nicotine [Habitrol] 21 mg TRDERM DAILY 01/13/20 Dinner Regular Diet [DIET] 01/13/20 21:00 Thiamine [Vitamin B-1] 100 mg PO BEDTIME 01/14/20 00:00 chlordiazePOXIDE [Librium] 50 mg PO Q6H 01/14/20 05:11 CBC WITH AUTO DIFF [HEME] AM COMPREHENSIVE METABOLIC PN,CMP [CHEM] AM MAGNESIUM [CHEM] AM 01/14/20 06:00 Pantoprazole [ProTONIX] 40 mg PO ACBREAKFAST 01/14/20 22:00 chlordiazePOXIDE [Librium] 25 mg PO Q4H 01/15/20 05:11 CBC WITH AUTO DIFF [HEME] AM COMPREHENSIVE METABOLIC PN,CMP [CHEM] AM MAGNESIUM [CHEM] AM 01/16/20 00:00 chlordiazePOXIDE [Librium] 25 mg PO Q6H - Assessment Assessment:: Assessment January 11 of admission * 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 * Currently not interested in alcohol rehabilitation. * Received 4 mg of Ativan and 50 mg Librium in the emergency department with good results and lowering of CIWA score below 8 * Received thiamine 100 mg IV in the emergency department * Received two 1 L boluses of IV fluids * Thrombocytopenia * Likely secondary to alcoholism * Platelets 128,000 * No history of bruising or bleeding * Nausea and vomiting with episodes of hematemesis * Secondary to alcohol withdrawal * Hemoglobin 16.0 likely artificially elevated secondary to hypovolemia * Hypokalemia * Secondary to vomiting and poor oral intake * Potassium 3.3 * Elevated blood pressure without history of hypertension * Secondary to alcohol withdrawal * Low-grade fever * Continue to follow and if fever becomes greater than 101 will work-up for sepsis * Chest x-ray negative for infection. * Normal white count * Still possibility of aspiration pneumonia * Tobaccoism * 1/2 packs/day for last 18 years * Request nicotine patch January 13, 2020 * Alcohol withdrawal syndrome improving * No seizures overnight * On Librium protocol * Only required 1 mg of Ativan overnight for breakthrough * Thrombocytopenia * Platelets 110,000 * Nausea, vomiting, hematemesis -resolved * Hemoglobin 14.7 -likely decreased secondary to rehydration * Hypokalemia * Potassium 3.4 * Given 40 mEq IV yesterday * Elevated blood pressure without history of hypertensionresolved * Blood pressures less than 140/90 * Low-grade fever * T-max 100.7 at midnight. Most recent temperature 97.3 - Plan Plan:: Plan * Admit to ICU for close observation * Continue Librium protocol * Continue CIWAA protocol with Ativan protocol coverage * Thiamine 100 mg p.o. nightly * Folic acid 1 mg daily * Protonix 40 mg p.o. every morning * Advance diet to regular * DC D5 half-normal saline at 150 mL/h for volume resuscitation * Follow CBC, CMP, mag * Potassium chloride 40 mEq p.o. x1 * Follow blood pressure closely and temperature * If fever is greater than 101, and patient has no other significant signs of withdrawal, will panculture and start antibiotics. * Nicotine patch * CODE STATUS full code * VTE prophylaxis with SCDs * Anticipated length of stay 2 to 3 days
[2020-01-13] MEDS ORDERED: Sodium Chloride 0.9% 10 ML Syringe FLUSH PRN (13:27)
[2020-01-13] MEDS ORDERED: Potassium Chloride 20 MEQ Tab.ER PO ONE (13:34)
[2020-01-13] MEDS: Diphenhydramine/Lidocaine/MagAl/Simethicone 119 ML Bottle PO PRN ×2 (14:13→17:09)
[2020-01-13] MEDS: Thiamine 100 MG Tab PO SCH (21:03)
[2020-01-14] MEDS: chlordiazePOXIDE 25 MG Cap PO SCH ×4 (05:37→21:25)
[2020-01-14] MEDS: Pantoprazole 40 MG Tab.CR PO SCH (05:37)
[2020-01-14] MEDS: Naltrexone 50 MG Tab PO SCH ×2 (08:03→08:45)
[2020-01-14] MEDS: Nicotine 21 MG/24 Hr Patch TRDERM SCH (08:03)
[2020-01-14] MEDS: Folic Acid 1 MG Tab PO SCH (08:03)
[2020-01-14] MEDS: LORazepam 2 MG/ML SDV IVPUSH PRN ×5 (09:02→16:08)
[2020-01-14] MEDS: Nicotine 7 MG/24 Hr Patch TRDERM SCH (09:08)
[2020-01-14] MEDS ORDERED: Magnesium Sulfate/Water 2 GM in Premix Bag 1 BAG IV ONE (10:00)
[2020-01-14] MEDS: Thiamine 100 MG Tab PO SCH (21:25)
[2020-01-15] MEDS: chlordiazePOXIDE 25 MG Cap PO SCH ×3 (01:57→09:13)
[2020-01-15] MEDS: Pantoprazole 40 MG Tab.CR PO SCH (06:00)
[2020-01-15] MEDS: Nicotine 21 MG/24 Hr Patch TRDERM SCH ×2 (07:53→08:24)
[2020-01-15] MEDS: Nicotine 7 MG/24 Hr Patch TRDERM SCH ×2 (07:53→08:24)
[2020-01-15] MEDS: Folic Acid 1 MG Tab PO SCH ×2 (07:54→08:24)
--- NOTE | 2020-01-15 09:05 | US ---
Limited abdominal ultrasound: Multiple real-time images of the upper right abdomen were obtained. Comparison: No previous abdominal imaging is available. Liver is echogenic as compared to the right kidney. This most likely relates to fatty infiltration. No discrete focal abnormality is seen within the liver. Gallbladder shows wall thickening and possibly very minimal gallbladder wall edema. There are no shadowing gallstones being seen. No biliary duct dilatation is seen. Pancreas shows no discrete abnormality. Main portal vein shows normal hepatopedal flow. Impression: 1. Slight gallbladder wall thickening with possible minimal gallbladder wall edema. No biliary duct dilatation is seen. No cholelithiasis is seen. Difficult to exclude acalculous cholecystitis. Please correlate with the patient's symptoms. If further evaluation is needed, biliary HIDA scan with ejection fraction could be considered. 2. Fatty infiltration is likely present within the liver. Diagnostic code #3 This report was dictated in MDT
--- NOTE | 2020-01-15 10:05 | PCM.PN ---
- General Info Date of Service: 01/14/20 Admission Dx/Problem (Free Text): Admission Diagnosis/Problem Admission Diagnosis/Problem Alcohol withdrawal syndrome Subjective Update: Patient states he is feeling well. He is without abdominal pain, nausea, or vomiting. He would like to be discharged and is threatening to go AMA. Unfortunately, his liver enzymes increased significantly with his AST going above 900. Patient has absolutely no symptoms of liver disease. Functional Status: Reports: Pain Controlled - Review of Systems General: Reports: No Symptoms HEENT: Reports: No Symptoms Pulmonary: Reports: No Symptoms Cardiovascular: Reports: No Symptoms Gastrointestinal: Reports: No Symptoms Musculoskeletal: Reports: No Symptoms Psychiatric: Reports: No Symptoms - Patient Data Vitals - Most Recent: Last Vital Signs Temp 97.5 F 01/15/20 03:00 Pulse 61 01/15/20 03:00 Resp 14 01/15/20 03:00 BP 125/79 01/15/20 03:00 Pulse Ox 99 01/15/20 03:00 Weight - Most Recent: 74.48 kg I&O - Last 24 Hours: Intake & Output 01/14/20 01/15/20 01/15/20 22:59 06:59 14:59 Intake Total 2710 800 Output Total 3000 Balance -290 800 Lab Results Last 24 Hours: Laboratory Results - last 24 hr 01/14/20 01/15/20 01/15/20 Range/Units 15:30 06:00 06:00 WBC 4.00 L (4.23-9.07) K/mm3 RBC 4.97 (4.63-6.08) M/mm3 Hgb 15.5 (13.7-17.5) gm/dl Hct 47.4 (40.1-51.0) % MCV 95.4 H (79.0-92.2) fl MCH 31.2 (25.7-32.2) pg MCHC 32.7 (32.2-35.5) g/dl RDW Std Deviation 45.9 H (35.1-43.9) fL Plt Count 112 L (163-337) K/mm3 MPV 11.0 (9.4-12.3) fl Neut % (Auto) 44.6 (34.0-67.9) % Lymph % (Auto) 28.3 (21.8-53.1) % [place] % (Auto) 23.0 H (5.3-12.2) % Eos % (Auto) 3.0 (0.8-7.0) Baso % (Auto) 0.8 (0.1-1.2) % Neut # (Auto) 1.79 (1.78-5.38) K/mm3 Lymph # (Auto) 1.13 L (1.32-3.57) K/mm3 [place] # (Auto) 0.92 H (0.30-0.82) K/mm3 Eos # (Auto) 0.12 (0.04-0.54) K/mm3 Baso # (Auto) 0.03 (0.01-0.08) K/mm3 Manual Slide Review Abnormal smear Sodium 138 140 (136-145) mEq/L Potassium 4.1 3.9 (3.5-5.1) mEq/L Chloride 101 104 (98-107) mEq/L Carbon Dioxide 29 27 (21-32) mEq/L Anion Gap 12.1 12.9 (5-15) BUN 4 L 6 L (7-18) mg/dL Creatinine 0.9 0.9 (0.7-1.3) mg/dL Est Cr Clr Drug Dosing 125.17 121.83 mL/min Estimated GFR (MDRD) > 60 > 60 (>60) mL/min BUN/Creatinine Ratio 4.4 L 6.7 L (14-18) Glucose 92 110 H (74-106) mg/dL Calcium 9.6 9.2 (8.5-10.1) mg/dL Magnesium 1.8 (1.8-2.4) mg/dl Total Bilirubin 0.4 0.3 (0.2-1.0) mg/dL AST 604 H 325 H (15-37) U/L ALT 481 H 357 H (16-63) U/L Alkaline Phosphatase 104 90 (46-116) U/L Total Protein 8.6 H 7.4 (6.4-8.2) g/dl Albumin 3.8 3.2 L (3.4-5.0) g/dl Globulin 4.8 4.2 gm/dL Albumin/Globulin Ratio 0.8 L 0.8 L (1-2) Med Orders - Current: Current Medications Acetaminophen (Tylenol) 650 mg PO Q4H PRN PRN Reason: Pain (Mild 1-3)/fever Last Admin: 01/12/20 23:42 Dose: 650 mg Documented by: Benzocaine (Hurricaine 20% Scott) 1 ml MUCMEM Q4HR PRN PRN Reason: Sore Throat Last Admin: 01/13/20 17:09 Dose: 1 spray Documented by: Chlordiazepoxide HCl (Librium) 25 mg PO Q4H [facility] Stop: 01/15/20 18:01 Last Admin: 01/15/20 09:13 Dose: 25 mg Documented by: Chlordiazepoxide HCl (Librium) 25 mg PO Q6H [facility] Stop: 01/16/20 18:01 Diphenhydr/Magaldrate/Simeth/Lidoca (First-Mouthwash Blm Susp) 30 ml PO ASDIRECTED PRN PRN Reason: Tongue pain Last Admin: 01/13/20 17:09 Dose: 1 applic Documented by: Folic Acid (Folic Acid) 1 mg PO DAILY [facility] Last Admin: 01/15/20 08:24 Dose: Not Given Documented by: Lorazepam (Ativan) 1 - 3 mg IVPUSH Q30M PRN; Protocol PRN Reason: Withdrawal Symptoms Last Admin: 01/14/20 16:08 Dose: 2 mg Documented by: Miscellaneous Information (Remove Patch) 1 ea TRDERM DAILY [facility] Last Admin: 01/15/20 08:25 Dose: Not Given Documented by: Miscellaneous Information (Remove Patch) 0 ea TRDERM Q24H [facility] Last Admin: 01/15/20 08:25 Dose: Not Given Documented by: Nicotine (Habitrol) 21 mg TRDERM DAILY [facility] Last Admin: 01/15/20 08:24 Dose: Not Given Documented by: Nicotine (Habitrol) 7 mg TRDERM DAILY [facility] Last Admin: 01/15/20 08:24 Dose: Not Given Documented by: Ondansetron HCl (Zofran) 4 mg IV Q4H PRN PRN Reason: Nausea/Vomiting Last Admin: 01/13/20 08:49 Dose: 4 mg Documented by: Pantoprazole Sodium (Protonix) 40 mg PO ACBREAKFAST [facility] Last Admin: 01/15/20 06:00 Dose: 40 mg Documented by: Sodium Chloride (Saline Flush) 10 ml FLUSH ASDIRECTED PRN PRN Reason: Keep Vein Open Thiamine HCl (Vitamin B-1) 100 mg PO BEDTIME [facility] Last Admin: 01/14/20 21:25 Dose: 100 mg Documented by: Discontinued Medications Chlordiazepoxide HCl (Librium) 50 mg PO ONETIME ONE Stop: 01/12/20 21:44 Last Admin: 01/12/20 22:36 Dose: 50 mg Documented by: Chlordiazepoxide HCl (Librium) 0 mg PO Q1H PRN; Protocol PRN Reason: Withdrawal Symptoms Chlordiazepoxide HCl (Librium) 50 mg PO Q4H [facility] Stop: 01/13/20 18:01 Last Admin: 01/13/20 17:07 Dose: 50 mg Documented by: Chlordiazepoxide HCl (Librium) 50 mg PO Q6H [facility] Stop: 01/14/20 18:01 Last Admin: 01/14/20 18:07 Dose: 50 mg Documented by: Lactated Ringer's (Ringers, Lactated) 1,000 mls @ 999 mls/hr IV .BOLUS ONE Stop: 01/12/20 20:46 Last Admin: 01/12/20 20:00 Dose: 999 mls/hr Documented by: Magnesium Sulfate 2 gm/ Premix 50 mls @ 25 mls/hr IV ONETIME ONE Stop: 01/12/20 22:20 Last Admin: 01/12/20 20:39 Dose: 25 mls/hr Documented by: Thiamine HCl 100 mg/ Sodium (Chloride) 101 mls @ 202 mls/hr IV ONETIME ONE Stop: 01/12/20 20:23 Last Admin: 01/12/20 20:40 Dose: 202 mls/hr Documented by: Lactated Ringer's (Ringers, Lactated) 1,000 mls @ 999 mls/hr IV .BOLUS ONE Stop: 01/12/20 22:07 Last Admin: 01/12/20 21:12 Dose: 999 mls/hr Documented by: Dextrose/Sodium Chloride (Dextrose 5%-1/2 Ns) 1,000 mls @ 150 mls/hr IV ASDIRECTED [facility] Last Admin: 01/13/20 11:58 Dose: 150 mls/hr Documented by: Potassium Chloride 10 meq/ (Premix) 100 mls @ 100 mls/hr IV Q1H [facility] Stop: 01/13/20 02:59 Last Admin: 01/13/20 02:50 Dose: 100 mls/hr Documented by: Magnesium Sulfate 2 gm/ Premix 50 mls @ 25 mls/hr IV ONETIME ONE Stop: 01/14/20 11:59 Last Admin: 01/14/20 10:03 Dose: 25 mls/hr Documented by: Lorazepam (Ativan) 2 mg IVPUSH ONETIME ONE Stop: 01/12/20 19:47 Last Admin: 01/12/20 20:00 Dose: 2 mg Documented by: Lorazepam (Ativan) 1 mg IVPUSH Q4H PRN; Protocol PRN Reason: Withdrawal Symptoms Lorazepam (Ativan) 0 mg IVPUSH Q4H PRN; Protocol PRN Reason: Withdrawal Symptoms Last Admin: 01/12/20 21:12 Dose: 2 mg Documented by: Miscellaneous Information (Remove Patch) 1 ea TRDERM DAILY [facility] Miscellaneous Information (Remove Patch) 1 ea TRDERM DAILY [facility] Naltrexone HCl (Naltrexone) 50 mg PO WITHBREAKFAST [facility] Last Admin: 01/14/20 08:45 Dose: Not Given Documented by: Ondansetron HCl (Zofran) 4 mg IVPUSH ONETIME ONE Stop: 01/12/20 19:47 Last Admin: 01/12/20 20:00 Dose: 4 mg Documented by: Pantoprazole Sodium (Protonix Iv) 40 mg IVPUSH Q12HR [facility] Last Admin: 01/13/20 08:21 Dose: Not Given Documented by: Potassium Chloride (Klor-Con M20) 40 meq PO ONETIME ONE Stop: 01/13/20 13:35 Last Admin: 01/13/20 14:14 Dose: 40 meq Documented by: Thiamine HCl (Vitamin B-1) 100 mg IVPUSH DAILY [facility] Last Admin: 01/13/20 08:21 Dose: Not Given Documented by: - Exam General: Alert, Oriented HEENT: Pupils Equal, Mucous Membr. Moist/[place] Neck: Supple Lungs: Clear to Auscultation, Normal Respiratory Effort Cardiovascular: Regular Rate, Regular Rhythm GI/Abdominal Exam: Normal Bowel Sounds, Soft, Non-Tender, No Organomegaly, No Distention, No Abnormal Bruit, No Mass Back Exam: Normal Inspection, Full Range of Motion Extremities: Normal Inspection, Normal Range of Motion, Non-Tender, No Pedal Edema, Normal Capillary Refill Skin: Warm, Dry, Intact Neurological: No New Focal Deficit Psy/Mental Status: Alert, Normal Affect, Normal Mood Sepsis Event Note - Evaluation Sepsis Screening Result: No Definite Risk - Focused Exam Vital Signs: Vital Signs Temp Pulse Resp BP Pulse Ox 01/15/20 03:00 97.5 F 61 14 125/79 99 - Problem List & Annotations (1) Alcohol withdrawal syndrome SNOMED Code(s): 180706841 Code(s): F10.239 - ALCOHOL DEPENDENCE WITH WITHDRAWAL, UNSPECIFIED Status: Acute Current Visit: Yes - Problem List Review Problem List Initiated/Reviewed/Updated: Yes - My Orders Last 24 Hours: My Active Orders 01/14/20 14:38 HEPATITIS PANEL (4) [REF] Routine 01/14/20 22:00 chlordiazePOXIDE [Librium] 25 mg PO Q4H 01/15/20 09:00 Remove Patch 0 ea TRDERM Q24H 01/15/20 09:58 Ready for Discharge [RC] PER UNIT ROUTINE 01/16/20 00:00 chlordiazePOXIDE [Librium] 25 mg PO Q6H - Assessment Assessment:: Assessment January 12, 2020day of admission * 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 * Currently not interested in alcohol rehabilitation. * Received 4 mg of Ativan and 50 mg Librium in the emergency department with good results and lowering of CIWA score below 8 * Received thiamine 100 mg IV in the emergency department * Received two 1 L boluses of IV fluids * Thrombocytopenia * Likely secondary to alcoholism * Platelets 128,000 * No history of bruising or bleeding * Nausea and vomiting with episodes of hematemesis * Secondary to alcohol withdrawal * Hemoglobin 16.0 likely artificially elevated secondary to hypovolemia * Hypokalemia * Secondary to vomiting and poor oral intake * Potassium 3.3 * Elevated blood pressure without history of hypertension * Secondary to alcohol withdrawal * Low-grade fever * Continue to follow and if fever becomes greater than 101 will work-up for sepsis * Chest x-ray negative for infection. * Normal white count * Still possibility of aspiration pneumonia * Tobaccoism * 1/2 packs/day for last 18 years * Request nicotine patch January 13, 2020 * Alcohol withdrawal syndrome improving * No seizures overnight * On Librium protocol * Only required 1 mg of Ativan overnight for breakthrough * Thrombocytopenia * Platelets 110,000 * Nausea, vomiting, hematemesis -resolved * Hemoglobin 14.7 -likely decreased secondary to rehydration * Hypokalemia * Potassium 3.4 * Given 40 mEq IV yesterday * Elevated blood pressure without history of hypertensionresolved * Blood pressures less than 140/90 * Low-grade fever * T-max 100.7 at midnight. Most recent temperature 97.3 January 14, 2020 * Alcohol withdrawal syndrome * Continued improvement * On Librium protocol * Elevated LFTsnew * AST 965, ALT 490. Repeat AST 604, ALT 481 * Absolutely no symptoms tolerating a diet well. Moved bowels. * Normal alk phos, bilirubin * Likely due to alcoholism * Thrombocytopenia-improved * plts 112 * Blood pressure improved - Plan Plan:: Plan * Changed to MedSurg status * Continue Librium protocol * Continue CIWAA protocol with Ativan protocol coverage * Thiamine 100 mg p.o. nightly * Folic acid 1 mg daily * Protonix 40 mg p.o. every morning * Ultrasound of the right upper quadrant in the morning * Follow CBC, CMP, mag * Follow blood pressure closely and temperature * If fever is greater than 101, and patient has no other significant signs of withdrawal, will panculture and start antibiotics. * Nicotine patch * CODE STATUS full code * VTE prophylaxis with SCDs * Plan discharge tomorrow
--- NOTE | 2020-01-15 11:56 | PCM.DCSUM1 ---
Discharge Summary - Hospital Course HPI Initial Comments: 34-year-old male traveling through the area from [place] to [place] was brought in by his girlfriend after vomiting up blood. Patient in a couple states that he drinks approximately 6, 24 ounce malt liquor beers every day and at least once a month his stomach will be upset and he will stop drinking. When he decreases his drinking he usually does vomit and has seizure-like episodes. Today patient had 4 seizures the last 1 approximately 5 minutes before arriving at the emergency department. Patient has actually cut down his drinking from a few months ago. He was drinking approximately 1/2 gallon of whiskey or vodka a day. Patient is requesting hospitalization for alcohol detox, but does not want to start alcohol rehab in this area. He plans on continuing through to visit his girlfriend's family in [place]. In the emergency department patient received a total of 4 mg of Ativan and 50 mg of Librium. Patient has significant improvement in his CIWAA scores. On arrival to the ER he did have a temperature just over 100. White count on a dmission was 7.49, hemoglobin 16.0, platelet count 128. Potassium 3.3, anion gap of 24.3, bicarb 18, creatinine 1.5, BUN 6, estimated GFR 54, GGT 321, AST 79, ALT 59, magnesium 1.6, total bilirubin 0.4, INR 1.01, ethanol 0. Chest x- ray showed no acute findings. Patient is a 1-1/2 pack/day smoker for the last 18 years. 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 * Currently not interested in alcohol rehabilitation. * Received 4 mg of Ativan and 50 mg Librium in the emergency department with good results and lowering of CIWA score below 8 * Received thiamine 100 mg IV in the emergency department * Received two 1 L boluses of IV fluids * Thrombocytopenia * Likely secondary to alcoholism * Platelets 128,000 * No history of bruising or bleeding * Nausea and vomiting with episodes of hematemesis * Secondary to alcohol withdrawal * Hemoglobin 16.0 likely artificially elevated secondary to hypovolemia * Hypokalemia * Secondary to vomiting and poor oral intake * Potassium 3.3 * Elevated blood pressure without history of hypertension * Secondary to alcohol withdrawal * Low-grade fever * Continue to follow and if fever becomes greater than 101 will work-up for sepsis * Chest x-ray negative for infection. * Normal white count * Still possibility of aspiration pneumonia * Tobaccoism * 1/2 packs/day for last 18 years * Request nicotine patch Plan * Admit to ICU for close observation * Start Librium protocol * Piero protocol with Ativan protocol coverage * Continue thiamine 100 mg IV tomorrow morning and switch to oral, if able to take orally, tomorrow night * Folic acid 1 mg daily * Protonix 40 mg IV every 12 hours * Clear liquid diet * D5 half-normal saline at 150 mL/h for volume resuscitation * Follow CBC, CMP, mag * Potassium chloride 10 mill equivalent IV riders x4 * Follow blood pressure closely and temperature * If fever is greater than 101, and patient has no other significant signs of withdrawal, will panculture and start antibiotics. * Nicotine patch * CODE STATUS full code * VTE prophylaxis with SCDs * Anticipated length of stay 2 to 3 days Diagnosis: Stroke: No - Discharge Data Discharge Date: 01/15/20 Discharge Disposition: Home, Self-Care 01 Condition: Good - Referral to Home Health Primary Care Physician: PCP None - Discharge Diagnosis/Problem(s) (1) Alcohol withdrawal syndrome SNOMED Code(s): 468963752 ICD Code: F10.239 - ALCOHOL DEPENDENCE WITH WITHDRAWAL, UNSPECIFIED Status: Acute - Patient Summary/Data Consults: Consultations 01/13/20 08:00 Consult to Case Management/Drain Tile Press Operator [CONS] Routine Consult to Spiritual Care [CONS] Routine Hospital Course: Assessment January 11 of admission * 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 * Currently not interested in alcohol rehabilitation. * Received 4 mg of Ativan and 50 mg Librium in the emergency department with good results and lowering of CIWA score below 8 * Received thiamine 100 mg IV in the emergency department * Received two 1 L boluses of IV fluids * Thrombocytopenia * Likely secondary to alcoholism * Platelets 128,000 * No history of bruising or bleeding * Nausea and vomiting with episodes of hematemesis * Secondary to alcohol withdrawal * Hemoglobin 16.0 likely artificially elevated secondary to hypovolemia * Hypokalemia * Secondary to vomiting and poor oral intake * Potassium 3.3 * Elevated blood pressure without history of hypertension * Secondary to alcohol withdrawal * Low-grade fever * Continue to follow and if fever becomes greater than 101 will work-up for sepsis * Chest x-ray negative for infection. * Normal white count * Still possibility of aspiration pneumonia * Tobaccoism * 1/2 packs/day for last 18 years * Request nicotine patch January 13, 2020 * Alcohol withdrawal syndrome improving * No seizures overnight * On Librium protocol * Only required 1 mg of Ativan overnight for breakthrough * Thrombocytopenia * Platelets 110,000 * Nausea, vomiting, hematemesis -resolved * Hemoglobin 14.7 -likely decreased secondary to rehydration * Hypokalemia * Potassium 3.4 * Given 40 mEq IV yesterday * Elevated blood pressure without history of hypertensionresolved * Blood pressures less than 140/90 * Low-grade fever * T-max 100.7 at midnight. Most recent temperature 97.3 January 14, 2020 * Alcohol withdrawal syndrome * Continued improvement * On Librium protocol * Elevated LFTsnew * AST 965, ALT 490. Repeat AST 604, ALT 481 * Absolutely no symptoms tolerating a diet well. Moved bowels. * Normal alk phos, bilirubin * Likely due to alcoholism * Thrombocytopenia * plts 103 * Blood pressure improved January 15, 2020day of discharge * Alcohol withdrawal syndrome * Continue to improved, but patient continues to receive Librium. * Patient insistent on discharge. * Elevated LFTsimproved * AST 325, ALT 357, total bilirubin 0.3, alkaline phosphatase 90 * Limited abdominal ultrasound of the right upper quadrant showed slight gallbladder wall thickening with possible minimal gallbladder wall edema. No biliary duct dilatation is seen. No cholelithiasis is seen. Difficult to exclude a calculus cholecystitis. Please correlate with the patient's symptoms. If further evaluation is needed, biliary HIDA scan with ejection fraction could be considered. 2. Fatty infiltration is likely present within the liver. * LFTs likely secondary to alcohol toxicity. Patient has no current symptoms to suggest cholecystitis. * Thrombocytopenia -improved * Platelets 112 - Patient Instructions Diet: Usual Diet as Tolerated, No Alcoholic Beverages Activity: As Tolerated Driving: Do Not Drive Showering/Bathing: May Shower Notify Provider of: Fever, Nausea and/or Vomiting Other/Special Instructions: Patient was given his results of his abdominal ultrasound of the liver and gallbladder. It did show a slight gallbladder wall thickening and possible minimal gallbladder wall edema. Patient has no symptoms of cholecystitis, therefore this is likely not clinically significant. I did discuss with him that if symptoms of nausea, vomiting, or abdominal pain occur he should go immediately to the nearest emergency department. I also discussed with him the need to stop drinking because of his fatty liver disease and significant liver enzyme elevation. He will be traveling to [place], therefore I recommended that he be seen by a provider as soon as he gets there for recheck of his liver enzymes. Start naltrexone - Discharge Plan *PRESCRIPTION DRUG MONITORING PROGRAM REVIEWED*: No *COPY OF PRESCRIPTION DRUG MONITORING REPORT IN PATIENT IMANI: No Prescriptions/Med Rec: Folic Acid 1 mg PO DAILY #30 tablet Nicotine [Habitrol] 21 mg TRDERM DAILY #30 patch chlordiazePOXIDE [Librium] 25 mg PO Q6H #6 cap Naltrexone 50 mg PO DAILY #30 tab Thiamine [Vitamin B-1] 100 mg PO BEDTIME #30 tablet Home Medications: Home Meds Folic Acid 1 mg PO DAILY #30 tablet 01/15/20 [Rx] Naltrexone 50 mg PO DAILY #30 tab 01/15/20 [Rx] Nicotine [Habitrol] 21 mg TRDERM DAILY #30 patch 01/15/20 [Rx] Thiamine [Vitamin B-1] 100 mg PO BEDTIME #30 tablet 01/15/20 [Rx] chlordiazePOXIDE [Librium] 25 mg PO Q6H #6 cap 01/15/20 [Rx] Oxygen Therapy Mode: Room Air Patient Handouts: Alcohol Use Disorder, Steps to Quit Smoking Referrals: PCP,None [Primary Care Provider] - - Discharge Summary/Plan Comment DC Time >30 min.: Yes Discharge Summary/Plan Comment: Discharged home in good condition. See above for recommendations. - General Info Date of Service: 01/15/20 Admission Dx/Problem (Free Text: Admission Diagnosis/Problem Admission Diagnosis/Problem Alcohol withdrawal syndrome Subjective Update: Patient is doing well without any significant symptoms of alcohol withdrawal. Liver enzymes have improved. Asymptomatic. Functional Status: Reports: Pain Controlled - Review of Systems General: Reports: No Symptoms HEENT: Reports: No Symptoms Pulmonary: Reports: No Symptoms Cardiovascular: Reports: No Symptoms Gastrointestinal: Reports: No Symptoms Musculoskeletal: Reports: No Symptoms Skin: Reports: No Symptoms Neurological: Reports: No Symptoms Psychiatric: Reports: No Symptoms - Patient Data Vitals - Most Recent: Last Vital Signs Temp 97.8 F 01/15/20 09:00 Pulse 64 01/15/20 09:00 Resp 16 01/15/20 09:00 BP 119/86 01/15/20 09:00 Pulse Ox 100 01/15/20 09:00 Weight - Most Recent: 74.48 kg I&O - Last 24 hours: Intake & Output 01/14/20 01/15/20 01/15/20 22:59 06:59 14:59 Intake Total 2710 800 Output Total 3000 Balance -290 800 Lab Results - Last 24 hrs: Laboratory Results - last 24 hr 01/14/20 01/15/20 01/15/20 Range/Units 15:30 06:00 06:00 WBC 4.00 L (4.23-9.07) K/mm3 RBC 4.97 (4.63-6.08) M/mm3 Hgb 15.5 (13.7-17.5) gm/dl Hct 47.4 (40.1-51.0) % MCV 95.4 H (79.0-92.2) fl MCH 31.2 (25.7-32.2) pg MCHC 32.7 (32.2-35.5) g/dl RDW Std Deviation 45.9 H (35.1-43.9) fL Plt Count 112 L (163-337) K/mm3 MPV 11.0 (9.4-12.3) fl Neut % (Auto) 44.6 (34.0-67.9) % Lymph % (Auto) 28.3 (21.8-53.1) % [place] % (Auto) 23.0 H (5.3-12.2) % Eos % (Auto) 3.0 (0.8-7.0) Baso % (Auto) 0.8 (0.1-1.2) % Neut # (Auto) 1.79 (1.78-5.38) K/mm3 Lymph # (Auto) 1.13 L (1.32-3.57) K/mm3 [place] # (Auto) 0.92 H (0.30-0.82) K/mm3 Eos # (Auto) 0.12 (0.04-0.54) K/mm3 Baso # (Auto) 0.03 (0.01-0.08) K/mm3 Manual Slide Review Abnormal smear Sodium 138 140 (136-145) mEq/L Potassium 4.1 3.9 (3.5-5.1) mEq/L Chloride 101 104 (98-107) mEq/L Carbon Dioxide 29 27 (21-32) mEq/L Anion Gap 12.1 12.9 (5-15) BUN 4 L 6 L (7-18) mg/dL Creatinine 0.9 0.9 (0.7-1.3) mg/dL Est Cr Clr Drug Dosing 125.17 121.83 mL/min Estimated GFR (MDRD) > 60 > 60 (>60) mL/min BUN/Creatinine Ratio 4.4 L 6.7 L (14-18) Glucose 92 110 H (74-106) mg/dL Calcium 9.6 9.2 (8.5-10.1) mg/dL Magnesium 1.8 (1.8-2.4) mg/dl Total Bilirubin 0.4 0.3 (0.2-1.0) mg/dL AST 604 H 325 H (15-37) U/L ALT 481 H 357 H (16-63) U/L Alkaline Phosphatase 104 90 (46-116) U/L Total Protein 8.6 H 7.4 (6.4-8.2) g/dl Albumin 3.8 3.2 L (3.4-5.0) g/dl Globulin 4.8 4.2 gm/dL Albumin/Globulin Ratio 0.8 L 0.8 L (1-2) Med Orders - Current: Current Medications Acetaminophen (Tylenol) 650 mg PO Q4H PRN PRN Reason: Pain (Mild 1-3)/fever Last Admin: 01/12/20 23:42 Dose: 650 mg Documented by: Benzocaine (Hurricaine 20% [place]) 1 ml MUCMEM Q4HR PRN PRN Reason: Sore Throat Last Admin: 01/13/20 17:09 Dose: 1 spray Documented by: Chlordiazepoxide HCl (Librium) 25 mg PO Q4H JOAQUÍN Stop: 01/15/20 18:01 Last Admin: 01/15/20 09:13 Dose: 25 mg Documented by: Chlordiazepoxide HCl (Librium) 25 mg PO Q6H JOAQUÍN Stop: 01/16/20 18:01 Diphenhydr/Magaldrate/Simeth/Lidoca (First-Mouthwash Blm Susp) 30 ml PO ASDIRECTED PRN PRN Reason: Tongue pain Last Admin: 01/13/20 17:09 Dose: 1 applic Documented by: Folic Acid (Folic Acid) 1 mg PO DAILY [facility] Last Admin: 01/15/20 08:24 Dose: Not Given Documented by: Lorazepam (Ativan) 1 - 3 mg IVPUSH Q30M PRN; Protocol PRN Reason: Withdrawal Symptoms Last Admin: 01/14/20 16:08 Dose: 2 mg Documented by: Miscellaneous Information (Remove Patch) 1 ea TRDERM DAILY [facility] Last Admin: 01/15/20 08:25 Dose: Not Given Documented by: Miscellaneous Information (Remove Patch) 0 ea TRDERM Q24H [facility] Last Admin: 01/15/20 08:25 Dose: Not Given Documented by: Nicotine (Habitrol) 21 mg TRDERM DAILY [facility] Last Admin: 01/15/20 08:24 Dose: Not Given Documented by: Nicotine (Habitrol) 7 mg TRDERM DAILY [facility] Last Admin: 01/15/20 08:24 Dose: Not Given Documented by: Ondansetron HCl (Zofran) 4 mg IV Q4H PRN PRN Reason: Nausea/Vomiting Last Admin: 01/13/20 08:49 Dose: 4 mg Documented by: Pantoprazole Sodium (Protonix) 40 mg PO ACBREAKFAST [facility] Last Admin: 01/15/20 06:00 Dose: 40 mg Documented by: Sodium Chloride (Saline Flush) 10 ml FLUSH ASDIRECTED PRN PRN Reason: Keep Vein Open Thiamine HCl (Vitamin B-1) 100 mg PO BEDTIME [facility] Last Admin: 01/14/20 21:25 Dose: 100 mg Documented by: Discontinued Medications Chlordiazepoxide HCl (Librium) 50 mg PO ONETIME ONE Stop: 01/12/20 21:44 Last Admin: 01/12/20 22:36 Dose: 50 mg Documented by: Chlordiazepoxide HCl (Librium) 0 mg PO Q1H PRN; Protocol PRN Reason: Withdrawal Symptoms Chlordiazepoxide HCl (Librium) 50 mg PO Q4H [facility]AQUÍN Stop: 01/13/20 18:01 Last Admin: 01/13/20 17:07 Dose: 50 mg Documented by: Chlordiazepoxide HCl (Librium) 50 mg PO Q6H [facility] Stop: 01/14/20 18:01 Last Admin: 01/14/20 18:07 Dose: 50 mg Documented by: Lactated Ringer's (Ringers, Lactated) 1,000 mls @ 999 mls/hr IV .BOLUS ONE Stop: 01/12/20 20:46 Last Admin: 01/12/20 20:00 Dose: 999 mls/hr Documented by: Magnesium Sulfate 2 gm/ Premix 50 mls @ 25 mls/hr IV ONETIME ONE Stop: 01/12/20 22:20 Last Admin: 01/12/20 20:39 Dose: 25 mls/hr Documented by: Thiamine HCl 100 mg/ Sodium (Chloride) 101 mls @ 202 mls/hr IV ONETIME ONE Stop: 01/12/20 20:23 Last Admin: 01/12/20 20:40 Dose: 202 mls/hr Documented by: Lactated Ringer's (Ringers, Lactated) 1,000 mls @ 999 mls/hr IV .BOLUS ONE Stop: 01/12/20 22:07 Last Admin: 01/12/20 21:12 Dose: 999 mls/hr Documented by: Dextrose/Sodium Chloride (Dextrose 5%-1/2 Ns) 1,000 mls @ 150 mls/hr IV ASDIRECTED [facility] Last Admin: 01/13/20 11:58 Dose: 150 mls/hr Documented by: Potassium Chloride 10 meq/ (Premix) 100 mls @ 100 mls/hr IV Q1H [facility] Stop: 01/13/20 02:59 Last Admin: 01/13/20 02:50 Dose: 100 mls/hr Documented by: Magnesium Sulfate 2 gm/ Premix 50 mls @ 25 mls/hr IV ONETIME ONE Stop: 01/14/20 11:59 Last Admin: 01/14/20 10:03 Dose: 25 mls/hr Documented by: Lorazepam (Ativan) 2 mg IVPUSH ONETIME ONE Stop: 01/12/20 19:47 Last Admin: 01/12/20 20:00 Dose: 2 mg Documented by: Lorazepam (Ativan) 1 mg IVPUSH Q4H PRN; Protocol PRN Reason: Withdrawal Symptoms Lorazepam (Ativan) 0 mg IVPUSH Q4H PRN; Protocol PRN Reason: Withdrawal Symptoms Last Admin: 01/12/20 21:12 Dose: 2 mg Documented by: Miscellaneous Information (Remove Patch) 1 ea TRDERM DAILY [facility] Miscellaneous Information (Remove Patch) 1 ea TRDERM DAILY [facility] Naltrexone HCl (Naltrexone) 50 mg PO WITHBREAKFAST [facility] Last Admin: 01/14/20 08:45 Dose: Not Given Documented by: Ondansetron HCl (Zofran) 4 mg IVPUSH ONETIME ONE Stop: 01/12/20 19:47 Last Admin: 01/12/20 20:00 Dose: 4 mg Documented by: Pantoprazole Sodium (Protonix Iv) 40 mg IVPUSH Q12HR [facility] Last Admin: 01/13/20 08:21 Dose: Not Given Documented by: Potassium Chloride (Klor-Con M20) 40 meq PO ONETIME ONE Stop: 01/13/20 13:35 Last Admin: 01/13/20 14:14 Dose: 40 meq Documented by: Thiamine HCl (Vitamin B-1) 100 mg IVPUSH DAILY [facility] Last Admin: 01/13/20 08:21 Dose: Not Given Documented by: - Exam General: Reports: Alert, Oriented HEENT: Reports: Pupils Equal, Mucous Membr. Moist/[place] Neck: Reports: Supple Lungs: Reports: Clear to Auscultation, Normal Respiratory Effort Cardiovascular: Reports: Regular Rate, Regular Rhythm GI/Abdominal Exam: Normal Bowel Sounds, Soft, Non-Tender, No Organomegaly, No Distention, No Abnormal Bruit Extremities: Normal Inspection, Normal Range of Motion, Non-Tender, No Pedal Edema, Normal Capillary Refill Skin: Reports: Warm, Dry, Intact Wound/Incisions: Reports: Healing Well Neurological: Reports: No New Focal Deficit Psy/Mental Status: Reports: Alert, Normal Affect, Normal Mood
[2020-01-16] MEDS ORDERED: chlordiazePOXIDE 25 MG Cap PO SCH
== END 2020-01-15 11:25 | disposition home or self-care (01) | DRG 897 ==
LOC: JD.ED 19:23 → JD.ICU 22:32
PROVIDERS: ADMIT Family Medicine; ATTEND Family Medicine
DX: F10.239 Alcohol dependence with withdrawal, unspecified (principal); K92.0 Hematemesis; R56.9 Unspecified convulsions; D69.6 Thrombocytopenia, unspecified; Z20.828 Contact with and (suspected) exposure to other viral communicable diseases; E87.6 Hypokalemia; F17.210 Nicotine dependence, cigarettes, uncomplicated; R50.9 Fever, unspecified
CPT/HCPCS: 36415; 71045; 71045-26; 76705; 76705-26; 80053; 80074; 80306; 80307; 81001; 82977; 83735; 85025; 85610; 96361; 96365; 96366; 96368; 96375; 96376; 99222; 99232; 99239; 99284; 99285-25; A9270-GY; C9113; J2060; J2405; J3411; J3475; J3480; J7042; J7050; J7120; U0002